=== PATIENT | female | born 1990 | race Caucasian/White ===

== ENCOUNTER 2016-11-28 23:19 | Emergency (ER) | payer SELFPAY ==
[~2016-11-28] VITALS: Ht 154.9 cm; Wt 95.0 kg
[2016-11-28 23:42] VITALS: Ht 154.9 cm; Wt 95.0 kg
--- NOTE | 2016-11-29 04:01 | ERA ---
ER Documentation Chief Complaint Date/Time DATE: 11/29/16 TIME: 04:[address], Ear pain and Fever for a week. HPI The patient is a 25-year-old female, presenting to the ER because of sore throat , bilateral ear pain, fever, general body pain for 1 week. She is not getting better, the cough is getting worse. She denies facial pain, neck pain, chest pain, abdominal pain, vomiting, dysuria, diarrhea. She does not smoke does not drink Past medical/surgical history: None ROS All systems reviewed and are negative except as per history of present illness. Medications Home Meds Active Scripts Ibuprofen* (Motrin*) 600 Mg Tab, 600 MG PO Q6H Y for PAIN AND OR ELEVATED TEMP, #20 TAB Prov:KEYA ZAMORA MD 11/29/16 Dextromethorphan Hb-Promethazine Hcl (Promethazine DM Syrup) 473 Ml Syrup, 10 ML PO Q6H Y for COUGH, #4 OZ Prov:KEYA ZAMORA MD 11/29/16 Azithromycin* (Zithromax*) 250 Mg Tablet, 250 MG PO .ZPACK DIRECTED, #6 TAB TAKE 500 MG (2 TABS) THE FIRST DAY THEN 250 MG (1 TAB) DAYS 2-5 Prov:KEYA ZAMORA MD 11/29/16 Oseltamivir Phosphate* (Tamiflu*) 75 Mg Capsule, 75 MG PO BID for 5 Days, CAP Prov:KEYA ZAMORA MD 11/29/16 Physical Exam Vitals Vital Signs Date Time Temp Pulse Resp B/P Pulse Ox O2 Delivery O2 Flow Rate FiO2 11/28/16 23:42 99.8 99 20 136/72 100 Physical Exam Const: No acute distress. Head: Atraumatic. Eyes: Normal Conjunctiva. ENT: Normal External Ears, Nose and Mouth. Left tympanic membrane bulging erythematous, normal oropharynx Neck: Full range of motion. No meningismus. Resp: Clear to auscultation bilaterally. Cardio: Regular rate and rhythm, no murmurs. Abd: Soft, non distended, normal bowel sounds, non tender. Skin: No petechiae or rashes. Back: No midline or flank tenderness. Ext: No cyanosis, or edema. Neur: Awake and alert. No focal deficit Psych: Normal Mood and Affect. Procedures/MDM MEDICAL MAKING DECISION: The patient is a 25-year-old female, presenting with acute bronchitis, acute bilateral otitis media, acute influenza-like illness. The differential diagnoses considered include but are not limited to pneumonia, UTI, pyelonephritis Departure Diagnosis: Primary Impression: Otitis media Additional Impressions: Influenza-like illness Bronchitis Condition: Good Comments She was discharged with Tamiflu, Z-Martinez pack, promethazine with dextromethorphan , Motrin I discussed the findings with the patient. I advised the patient to follow-up with the primary physician in about 1-2 days, sooner if needed and return if any concern. The patient's blood pressure was elevated (>120/80) but appears stable without evidence of hypertension emergency or urgency. The patient was counseled about the risks of hypertension and urged to pursue outpatient monitoring and therapy within a week with their primary care physician. KEYA ZAMORA MD Nov 29, 2016 04:00
[2016-11-29] MEDS ORDERED: OSLT75C PO (04:06)
[2016-11-29] MEDS ORDERED: IBUP-1542 PO (04:07)
[2016-11-29] MEDS ORDERED: D-ME473S18 PO (04:07)
[2016-11-29] MEDS ORDERED: AZIT250T94 PO (04:07)
[2016-11-29 04:15] VITALS: BP 115/69; PULSE 72; RESP 16; TEMP 97.1
== END 2016-11-29 04:30 | disposition home or self-care (01) ==
LOC: E/R 23:19
DX: H66.92 Otitis media, unspecified, left ear (principal); J20.9 Acute bronchitis, unspecified; R50.9 Fever, unspecified
CPT/HCPCS: 99284